=== PATIENT | male | born 1950 | race Caucasian/White ===

== ENCOUNTER 2025-01-12 09:21 | Emergency (ER) | payer MEDICARE, OTHER ==
[~2025-01-12] VITALS: Ht 172.7 cm; Wt 88.5 kg
[~2025-01-12 09:21] MED LIST: AMOCLA875 PO; CEPH500 PO; HYDACE5 PO
[2025-01-12 09:56] VITALS: BP 145/92
== END 2025-01-12 10:58 | disposition home or self-care (01) ==
LOC: ER 09:21
DX: M71.22 Synovial cyst of popliteal space [Baker], left knee (principal); Z79.2 Long term (current) use of antibiotics; Z79.891 Long term (current) use of opiate analgesic
CPT/HCPCS: 93971; 99283-25